=== PATIENT | female | born 1960 | race Caucasian/White ===

== ENCOUNTER 2018-02-28 08:54 | Emergency (ER) | payer MEDICAID ==
[~2018-02-28] VITALS: Ht 167.6 cm; Wt 99.1 kg
[~2018-02-28 08:54] MED LIST: ASPI-611 PO; BACL10TA PO; BUPR-83 PO; CLON-527 PO; ESCI20TA PO; FLUT16SP10; FLUT1DIS INH; HYDR-565 PO; HYDR200T84 PO; HYDR25TA4 PO; IPRA15SP2 BOTHNARES; KEN0.1O TP; LEVA15HF4 INH; LORA10TA7 PO; LURA20TA PO; NAPR-56 PO; PAT0.1OS EACHEYE; RANI150T8 PO
[2018-02-28] MEDS ORDERED: AMOX-422 PO (09:58)
[2018-02-28] MEDS ORDERED: colchicine 0.6mg tablet PO ONE (10:00)
[2018-02-28] MEDS ORDERED: ondansetron 4mg rapidly disintigrating tab PO ONE (10:00)
[2018-02-28] MEDS ORDERED: HYDROmorphone 1 mg/ml syringe IM ONE (10:00)
[2018-02-28] MEDS ORDERED: COLC0.6T69 PO (11:00)
[2018-02-28] MEDS ORDERED: HYDR-565 PO (11:01)
[2018-02-28 11:20] VITALS: BP 108/70
[2018-03-01] MEDS ORDERED: PRED20TA PO (12:45)
[2018-03-01] MEDS ORDERED: ONDA8TAB6 PO (12:45)
== END 2018-02-28 11:21 | disposition home or self-care (01) ==
LOC: ER 08:54
DX: M79.672 Pain in left foot (principal); I10 Essential (primary) hypertension; J45.909 Unspecified asthma, uncomplicated; Z90.710 Acquired absence of both cervix and uterus; Z79.82 Long term (current) use of aspirin; Z79.899 Other long term (current) drug therapy
CPT/HCPCS: 96372; 99283; J1170

== ENCOUNTER 2018-03-01 11:54 | Emergency (ER) | payer MEDICAID ==
[~2018-03-01] VITALS: Ht 167.6 cm; Wt 107.0 kg
[~2018-03-01 11:54] MED LIST changes: +AMOX-422 PO; +COLC0.6T69 PO
[2018-03-01] MEDS ORDERED: ketorolac tromethamine 15mg/ml inj. IM ONE (12:40)
[2018-03-01] MEDS ORDERED: ondansetron 4mg rapidly disintigrating tab PO ONE (12:40)
[2018-03-01] MEDS ORDERED: methylPREDNISolone sod succ 125mg/2ml vial IM ONE (12:40)
[2018-03-01] MEDS ORDERED: PRED20TA PO (12:45)
[2018-03-01] MEDS ORDERED: ONDA8TAB6 PO (12:45)
[2018-03-01] MEDS ORDERED: ketorolac trometh. 30mg/ml inj. IM ONE (12:50)
[2018-03-01] MEDS ORDERED: HYDROmorphone 2mg tablet PO ONE (14:10)
[2018-03-01] MEDS ORDERED: normal saline 1000ML IV soln IVB ONE (15:25)
[2018-03-01 16:04] LABS: BASOPHILS % (AUTO) 0 % (0-1); EOSINOPHILS % (AUTO) 0.3 % (0-6); HEMATOCRIT 37.5 % (35.0-45.0); HEMOGLOBIN 12.4 g/dl (12.0-16.0); LYMPHOCYTES # (AUTO) 0.4 X10'3 (1.1-4.8); MEAN CORPUSCULAR HEMOGLOBIN 27.3 PG (27.0-31.0); MEAN CORPUSCULAR HGB CONC 33.1 % (33.0-36.5); MEAN CORPUSCULAR VOLUME 82.4 FL (78-98); MONOCYTES # (AUTO) 0.5 X10'3 (0-0.9); MONOCYTES % (AUTO) 4.1 % (2-12); NEUTROPHILS % (AUTO) 92.6 % (42-75); PLATELET COUNT 221 X10'3 (140-440); RED BLOOD COUNT 4.55 X10'6 (4.20-5.60); RED CELL DISTRIBUTION WIDTH 14.1 % (11.5-14.5)
[2018-03-01 16:22] LABS: ALANINE AMINOTRANSFERASE 17 U/L (12-78); ALBUMIN 2.3 G/DL (3.4-5.0); ALBUMIN/GLOBULIN RATIO 0.5 (1.1-1.5); ALKALINE PHOSPHATASE 176 IU/L (46-116); ANION GAP 16 (8-16); ASPARTATE AMINO TRANSFERASE 19 U/L (10-37); BILIRUBIN,TOTAL 0.7 MG/DL (0.1-1.0); BLOOD UREA NITROGEN 41 MG/DL (7-18); BUN/CREATININE RATIO 16.7 (6.6-38.0); CHLORIDE 95 MMOL/L (99-107); CREATININE 2.46 MG/DL (0.40-0.90); GLUCOSE 98 MG/DL (70-104); POTASSIUM 3.6 MMOL/L (3.5-5.1); SODIUM 130 MMOL/L (135-145); TOTAL CARBON DIOXIDE 18.9 MMOL/L (24-32); TOTAL PROTEIN 6.5 G/DL (6.4-8.2); eGFR 20 ML/MIN
[2018-03-01 18:30] VITALS: BP 149/82
== END 2018-03-01 18:35 | disposition home or self-care (01) ==
LOC: ER 11:54
DX: M10.9 Gout, unspecified (principal); R11.2 Nausea with vomiting, unspecified; I10 Essential (primary) hypertension; J45.909 Unspecified asthma, uncomplicated; M79.675 Pain in left toe(s); Z90.710 Acquired absence of both cervix and uterus; Z79.899 Other long term (current) drug therapy; Z79.82 Long term (current) use of aspirin
CPT/HCPCS: 36415; 80053; 85025; 96372; 99284; J1885; J2930; J7030

== ENCOUNTER 2021-08-17 06:02 | Day surgery (SDC) | payer MEDICAID ==
[~2021-08-17] VITALS: Ht 167.6 cm; Wt 103.9 kg
[~2021-08-17 06:02] MED LIST changes: -AMOX-422 PO; +BUPR-114 PO; -BUPR-83 PO; -COLC0.6T69 PO; +COLC0.6T72 PO; +HYDR-4353 PO; -HYDR-565 PO; +ONDA8TAB6 PO
[2021-08-17] MEDS ORDERED: albumin 25% 100mL bottle x 1 IV PRN (06:25)
[2021-08-17] MEDS ORDERED: APIX5TAB3 PO (06:41)
[2021-08-17] MEDS ORDERED: OMEP40CA21 PO (06:41)
[2021-08-17] MEDS ORDERED: CELE-85 PO (06:41)
[2021-08-17 06:51] VITALS: BP 139/76
[2021-08-17] MEDS ORDERED: LIDOcaine 1%/PF 5ML 10 MG/ML VIAL SQ ONE (06:55)
[2021-08-17 08:45] VITALS: BP 120/82
[2021-08-17 09:00] VITALS: BP 117/83
[2021-08-17 09:16] VITALS: BP 134/72
[2021-08-17 09:30] VITALS: BP 141/73
== END 2021-08-17 09:45 | disposition home or self-care (01) ==
LOC: SSTAY O 06:02
PROVIDERS: ATTEND Radiology Diagnostic Radiology
DX: J90 Pleural effusion, not elsewhere classified (principal); I10 Essential (primary) hypertension; J45.909 Unspecified asthma, uncomplicated; M06.9 Rheumatoid arthritis, unspecified; Z86.711 Personal history of pulmonary embolism; Z87.01 Personal history of pneumonia (recurrent); Z90.710 Acquired absence of both cervix and uterus; Z90.49 Acquired absence of other specified parts of digestive tract; F12.90 Cannabis use, unspecified, uncomplicated; Z79.01 Long term (current) use of anticoagulants; Z79.899 Other long term (current) drug therapy
CPT/HCPCS: 32555; J3490